=== PATIENT | male | born 1980 | race Hispanic/Latino ===

== ENCOUNTER 2024-03-31 08:27 | Outpatient (CLI) | payer BC | END 2024-03-31 08:28 | disposition home or self-care (01) | LOC: BICULT 08:27 | PROVIDERS: ATTEND Internal Medicine | DX: R79.89 Other specified abnormal findings of blood chemistry (principal); K76.0 Fatty (change of) liver, not elsewhere classified; K82.4 Cholesterolosis of gallbladder; K82.8 Other specified diseases of gallbladder | CPT/HCPCS: 76700 ==